=== PATIENT | female | born 1965 | race Caucasian/White ===

== ENCOUNTER 2017-11-24 12:21 | Emergency (ER) | payer BC ==
--- NOTE | 2017-11-24 12:26 | EDM.PDOC ---
ED HPI GENERAL MEDICAL PROBLEM - General Chief Complaint: ENT Problem Stated Complaint: Nose Bleed Time Seen by Provider: 11/24/17 12:25 - Related Data Allergies Allergy/AdvReac Type Severity Reaction Status Date / Time bacitracin Allergy Hives Verified 11/24/17 12:41 sulfamethoxazole Allergy Hives Verified 11/24/17 12:41 [From Bactrim] trimethoprim [From Bactrim] Allergy Hives Verified 11/24/17 12:41 Home Meds: Home Meds Levofloxacin [Levaquin] 500 mg PO DAILY 10 Days #10 tab 11/24/17 [Rx] ED ROS ENT - Review of Systems Review Of Systems: See Below Constitutional: Reports: No Symptoms HEENT: Reports: Nosebleed, Other (Sinus surgery about 4 weeks ago, green/guardado exudate from sinus this am.) Respiratory: Reports: No Symptoms Cardiovascular: Reports: No Symptoms ED EXAM, ENT - Physical Exam Exam: See Below Exam Limited By: No Limitations General Appearance: Alert, WD/WN, No Apparent Distress Nose: Active Bleeding Mouth/Throat: Normal Inspection, Normal Lips, Normal Oropharynx Head: Atraumatic, Normocephalic Neck: Supple, Non-Tender Respiratory/Chest: No Respiratory Distress Cardiovascular: Normal Peripheral Pulses GI/Abdominal: Soft, Non-Tender Neurological: Alert, Oriented, Normal Cognition, Normal Gait Psychiatric: Normal Affect Skin: Warm, Dry, Normal Color Course - Vital Signs Last Recorded V/S: Last Vital Signs Temp 98.8 F 11/24/17 12:26 Pulse 74 11/24/17 13:42 Resp 18 11/24/17 13:42 BP 136/91 H 11/24/17 13:42 Pulse Ox 100 11/24/17 13:42 - Orders/Labs/Meds Labs: Laboratory Tests 11/24/17 Range/Units 13:40 WBC 4.6 (4.0-11.0) K/uL RBC 4.24 (3.80-5.80) M/uL Hgb 12.7 (11.5-16.5) g/dL Hct 37.4 (37.0-47.0) % MCV 88 (76-96) fL MCH 30.0 (27.0-32.0) pg MCHC 34.0 (31.0-35.0) g/dL RDW 12.7 (11.0-16.0) % Plt Count 194 (150-500) K/uL MPV 9.3 (6.0-10.0) fL Neutrophils % (Manual) 64.0 (45.0-70.0) % Band Neutrophils % 2.0 % Lymphocytes % (Manual) 24.0 (20.0-40.0) % Monocytes % (Manual) 8.0 (3.0-10.0) % Eosinophils % (Manual) 2.0 (1.0-5.0) % - Re-Assessments/Exams Free Text/Narrative Re-Assessment/Exam: 11/24/17 13:44 epitaxis continues to right nares. With use of sterile q-tips, pushed nasal clot to back of nares. Saline flush X 2 used to nares. Pt states she felt some of the clot relieved. Ice applied to nose and pressure applied to bridge of nose. Afrin 2 sprays to each nares used. Consult w Dr Baird. Dr Baird examined pt and applied nasal packing to right nares. States to return to clinic tomorrow to have packing removed. Pt had picture on cell phone of guardado/green thick exudate, from nares this am. Will get CBC now and start Levaquin 500 mg PO X 10 days for sinus infection. Pt instructed to not blow nares today. 11/24/17 14:54 LE CBC normal will start Levaquin 1 tablet daily for 10 days. Start empirically for sinus infection Pt states understanding, discharged and in no acute distress. Neighbor is with him and will drive her home. She has been in contact with her and ENT for her visit today. Dr Baird provided education for care of nasal bleeding at home with pinching nasal area for 2 minutes and then use of Afrin 2 sprays to nostril every 20 minutes X 3. If bleeding persists present to ER for assist. Departure - Departure Time of Disposition: 13:52 Disposition: Home, Self-Care 01 Condition: Good Clinical Impression: Epistaxis, Acute infection of sinus - Discharge Information Prescriptions: Levofloxacin [Levaquin] 500 mg PO DAILY 10 Days #10 tab Referrals: PCP,None [Primary Care Provider] - Forms: ED Department Discharge Additional Instructions: Discharge home. Follow up in clinic tomorrow to have packing removed. Levaquin prescription called into the pharmacy in [facility]. Follow up with any concerns.
[2017-11-24] MEDS ORDERED: Oxymetazoline 0.05% Nasal Spray 15 ML Bottle ONE (13:15)
== END 2017-11-24 13:52 | disposition home or self-care (01) ==
LOC: LB.ED 12:21
DX: R04.0 Epistaxis (principal); J01.90 Acute sinusitis, unspecified; Z88.1 Allergy status to other antibiotic agents; Z88.2 Allergy status to sulfonamides
CPT/HCPCS: 30901; 36415; 85025; 99283; A9270